=== PATIENT | male | born 1990 | race African-American/Black ===

== ENCOUNTER 2016-10-05 11:05 | Emergency (ER) | payer OTHER ==
[~2016-10-05] VITALS: Ht 175.3 cm; Wt 71.0 kg
[2016-10-05] MEDS ORDERED: SODIUM CHLORIDE 0.9% 1000ML 1,000 ML IV STA (11:11)
[2016-10-05 11:13] VITALS: TEMP 36.3; Ht 175.3 cm; Wt 71.0 kg
--- NOTE | 2016-10-05 11:16 | EMERGENCY ROOM VISIT NOTE ---
History Report prepared by Scribe: Lynn Combs Under the Supervision of: Dr. José Miguel Chaparro D.O. First contact with patient: 11:07 Stated Complaint: OVERDOSE History of Present Illness The patient is a 26 year old male who presents to the Emergency Room with complaints of an overdose that occurred this morning. Per EMS, the patient is an inmate and found K2 in the yard today that was reportedly sold to him by another inmate. He apparently smoked the K2 this morning and has been altered for the past 2 hours. Staff at the residential told EMS that he was tachycardic in the 120s, but he was normal sinus rhythm en route to the ED. His blood sugar was 86. There was no known trauma. He uses tobacco. History limited secondary to altered mental status. Source of History: EMS History Limited By: AMS Onset: this morning Position: other (global) Quality: other (K2 overdose) Timing: constant Review of Systems Limited secondary to altered mental status. Past Medical & Surgical Medical Problems: (1) History of psychiatric disorder Family History Unobtainable secondary to altered mental status. Social History Housing Status: other (residential) Occupation Status: other (inmate) Current/Historical Medications No Active Prescriptions or Reported Meds Allergies Coded Allergies: No Known Allergies (Unverified , 10/05/16) Physical Exam Vital Signs Date Time Temp Pulse Resp B/P Pulse Ox O2 Delivery O2 Flow Rate FiO2 10/05/16 15:33 82 18 143/78 99 Room Air 10/05/16 13:11 64 10/05/16 12:51 72 18 138/81 99 Room Air 10/05/16 11:22 75 10/05/16 11:19 100 Room Air 10/05/16 11:19 100 Room Air 10/05/16 11:13 36.3 74 18 125/82 100 Room Air Physical Exam GENERAL: Patient is awake and alert, answers questions intermittently, follows command intermittently. EYES: The conjunctivae are clear. The pupils are round and reactive. EARS, NOSE, MOUTH AND THROAT: The nose is without any evidence of any deformity. Mucous membranes dry. NECK: The neck is nontender and supple. RESPIRATORY: Normal respiratory effort is noted there is no evidence of wheezing rhonchi or rales CARDIOVASCULAR: Regular rate and rhythm noted there no murmurs rubs or gallops normal S1 normal S2 GASTROINTESTINAL: The abdomen is soft. Bowel sounds are present in all quadrants. Abdomen is nontender MUSCULOSKELETAL/EXTREMITIES: There is no evidence of gross deformity full range of motion is noted in the hips and shoulders SKIN: There is no obvious evidence of any rash. There are no petechiae, pallor or cyanosis noted. NEUROLOGIC: Patient is awake and oriented to person, place, but not time or situation. Patellar tendon reflexes 2+ bilaterally. PSYCH: Patient is not answering questions appropriately. Appears confused at times. Unable to assess psychiatric status at this time. Medical Decision & Procedures ER Provider Diagnostic Interpretation: Radiology results as stated below per my review and radiologist interpretation: HEAD CT NONCONTRAST CT DOSE: 906.34 mGycm HISTORY: Change in mental status OVERDOSE TECHNIQUE: Multiaxial CT images of the head were performed without the use of intravenous contrast. Comparison: None. Findings: The paranasal sinuses and mastoid air cells are clear. The calvarium and skull base are intact. The ventricles and sulci are within normal limits. There is no mass, hematoma, midline shift, or acute infarct. Impression: No acute intracranial abnormality. Electronically signed by: Anibal Mohamud M.D. 10/05/2016 11:49 AM Dictated Date/Time: 10/05/2016 11:48 AM CHEST ONE VIEW PORTABLE CLINICAL HISTORY: Overdose dyspnea COMPARISON STUDY: No previous studies for comparison. FINDINGS: The bones soft tissues and hemidiaphragms are normal. The cardiomediastinal silhouette is normal. The lungs are clear. The pulmonary vasculature is normal. IMPRESSION: Negative chest. Electronically signed by: Anibal Mohamud M.D. 10/05/2016 11:29 AM Dictated Date/Time: 10/05/2016 11:28 AM Laboratory Results 10/05/16 12:00 Red Blood Count 5.05, Mean Corpuscular Volume 85.3, Mean Corpuscular Hemoglobin 30.5, Mean Corpuscular Hemoglobin Concent 35.7, Mean Platelet Volume 9.8, Neutrophils (%) (Auto) 72.5, Lymphocytes (%) (Auto) 14.3, Monocytes (%) (Auto) 10.9, Eosinophils (%) (Auto) 1.7, Basophils (%) (Auto) 0.5, Neutrophils # (Auto ) 6.06, Lymphocytes # (Auto) 1.19, Monocytes # (Auto) 0.91, Eosinophils # (Auto ) 0.14, Basophils # (Auto) 0.04 10/05/16 12:00 Test 10/05/16 11:26 10/05/16 12:00 10/05/16 13:27 Bedside Glucose 100 mg/dl (70-99) White Blood Count 8.35 K/uL (4.8-10.8) Red Blood Count 5.05 M/uL (4.7-6.1) Hemoglobin 15.4 g/dL (14.0-18.0) Hematocrit 43.1 % (42-52) Mean Corpuscular Volume 85.3 fL (80-100) Mean Corpuscular Hemoglobin 30.5 pg (25-34) Mean Corpuscular Hemoglobin Concent 35.7 g/dl (32-36) Platelet Count 295 K/uL (130-400) Mean Platelet Volume 9.8 fL (7.4-10.4) Neutrophils (%) (Auto) 72.5 % Lymphocytes (%) (Auto) 14.3 % Monocytes (%) (Auto) 10.9 % Eosinophils (%) (Auto) 1.7 % Basophils (%) (Auto) 0.5 % Neutrophils # (Auto) 6.06 K/uL (1.4-6.5) Lymphocytes # (Auto) 1.19 K/uL (1.2-3.4) Monocytes # (Auto) 0.91 K/uL (0.11-0.59) Eosinophils # (Auto) 0.14 K/uL (0-0.5) Basophils # (Auto) 0.04 K/uL (0-0.2) RDW Standard Deviation 37.9 fL (36.4-46.3) RDW Coefficient of Variation 12.2 % (11.5-14.5) Immature Granulocyte % (Auto) 0.1 % Immature Granulocyte # (Auto) 0.01 K/uL (0.00-0.02) Prothrombin Time 12.2 SECONDS (9.0-12.0) Prothromb Time International Ratio 1.1 (0.9-1.1) Activated Partial Thromboplast Time 27.8 SECONDS (21.0-31.0) Partial Thromboplastin Ratio 1.1 Anion Gap 6.0 mmol/L (3-11) Est Creatinine Clear Calc Drug Dose 119.1 ml/min Estimated GFR () 129.2 Estimated GFR (Non- 111.5 BUN/Creatinine Ratio 16.7 (10-20) Osmolality 295 mOsm/kg (280-300) Calcium Level 9.1 mg/dl (8.5-10.1) Total Bilirubin 1.2 mg/dl (0.2-1) Direct Bilirubin 0.2 mg/dl (0-0.2) Aspartate Amino Transf (AST/SGOT) 17 U/L (15-37) Alanine Aminotransferase (ALT/SGPT) 21 U/L (12-78) Alkaline Phosphatase 63 U/L (45-117) Total Creatine Kinase 472 U/L (39-308) Creatine Kinase MB 2.3 ng/ml (0.5-3.6) Creatine Kinase MB Ratio 0.5 (0-3.0) Troponin I < 0.015 ng/ml (0-0.045) Total Protein 7.4 gm/dl (6.4-8.2) Albumin 4.1 gm/dl (3.4-5.0) Lipase 188 U/L (73-393) Salicylates Level < 1.7 mg/dl (2.8-20) Acetaminophen Level < 2 ug/ml (10-30) Ethyl Alcohol mg/dL < 3.0 mg/dl (0-3) Urine Color DK YELLOW Urine Appearance CLEAR (CLEAR) Urine pH 8.5 (4.5-7.5) Urine Specific [place] 1.030 (1.000-1.030) Urine Protein NEG (NEG) Urine Glucose (UA) NEG (NEG) Urine Ketones TRACE (NEG) Urine Occult Blood NEG (NEG) Urine Nitrite NEG (NEG) Urine Bilirubin NEG (NEG) Urine Urobilinogen NEG (NEG) Urine Leukocyte Esterase NEG (NEG) Urine Opiates Screen NEG (NEG) Urine Methadone, Qualitative NEG (NEG) Urine Barbiturates NEG (NEG) Urine Phencyclidine (PCP) Level NEG (NEG) Ur Amphetamine/Methamphetamine NEG (NEG) MDMA (Ecstasy) Screen NEG (NEG) Urine Benzodiazepines Screen NEG (NEG) Urine Cocaine Metabolite NEG (NEG) Urine Marijuana (THC) NEG (NEG) Laboratory results per my review. Medications Administered Medications (Trade) Dose Ordered Sig/Yonny Route Start Time Stop Time Status Last Admin Dose Admin Sodium Chloride (Nss 1000ml) 1,000 ml @ 999 mls/hr Q1H1M STAT IV 10/05/16 11:11 10/05/16 12:11 DC 10/05/16 11:11 999 MLS/HR ECG Indication: toxicologic Rate (beats per minute): 74 Rhythm: normal sinus Findings: no ectopy, other (no acute ST segment abnormality) Comparison ECG Date: no prior available ED Course 1109: The patient was evaluated in room C7. A complete history and physical examination were performed. 1111: Ordered NSS 1000 ml @ 999 mls/hr IV. 1220: I reassessed the patient. He was still slightly altered. 1459: Upon reevaluation, the patient is resting comfortably. I discussed the results and treatment plan with the patient and the guards. They verbalized agreement of the treatment plan. The patient was discharged back to the residential. 1512: I spoke with Leida, a member of the medical team at the residential. The patient will be observed in the [facility] and will be sent back to the ER if he worsens. Medical Decision Prior records/ancillary studies reviewed. Triage Nursing notes reviewed. Additional history obtained from EMS. The patient's history was concerning for altered mental status and probable overdose. Differential diagnosis: Etiologies such as toxicologic, infection, hypoglycemia, electrolyte abnormalities, cardiac sources, intracerebral event, neurologic, as well as others were entertained. The patient is a 26-year-old male who presented to the emergency department from the residential for an evaluation of altered mental status. According to the prehospital personnel the patient may have been involved with using drugs at the residential. He was reportedly visitation day and the patient was found with a synthetic drug. The patient denied any drug or alcohol use. He did not have any focal neurologic doses. He appeared to be confused but on multiple re- evaluations his confusion continued to improve. I discussed patient's laboratory and radiographic studies with him. I also discussed this case with the medical personnel at the residential. I recommended that [facility] and sent him back to the emergency department for any other worrisome symptoms such as fever or neck stiffness any signs of meningitis or any other worrisome symptoms. Otherwise they were encouraged to continue all medications as prescribed. Impression Primary Impression: Altered mental status Additional Impression: Suspected drug abuse Scribe Attestation The scribe's documentation has been prepared under my direction and personally reviewed by me in its entirety. I confirm that the note above accurately reflects all work, treatment, procedures, and medical decision making performed by me. Departure Information Dispostion Home / Self-Care Prescriptions No Active Prescriptions or Reported Meds Referrals Дмитрий ZAZUETA (PCP) Patient Instructions [facility] Additional Instructions Continue to observe the patient in the [facility]. His mental status should continue to clear if this is consistent with a recreational drug use. Return to the emergency department if symptoms change worsen or the need arises. Problem Qualifiers Primary Impression: Altered mental status Altered mental status type: unspecified Qualified Codes: R41.82 - Altered mental status, unspecified
[2016-10-05 11:19] VITALS: O2SAT 100
--- NOTE | 2016-10-05 11:30 | DIAGNOSTIC IMAGING REPORT ---
CHEST ONE VIEW PORTABLE CLINICAL HISTORY: Overdose dyspnea COMPARISON STUDY: No previous studies for comparison. FINDINGS: The bones soft tissues and hemidiaphragms are normal. The cardiomediastinal silhouette is normal. The lungs are clear. The pulmonary vasculature is normal. IMPRESSION: Negative chest. Electronically signed by: Anibal Mohamud M.D. 10/05/2016 11:29 AM Dictated Date/Time: 10/05/2016 11:28 AM
--- NOTE | 2016-10-05 11:51 | DIAGNOSTIC IMAGING REPORT ---
HEAD CT NONCONTRAST CT DOSE: 906.34 mGycm HISTORY: Change in mental status OVERDOSE TECHNIQUE: Multiaxial CT images of the head were performed without the use of intravenous contrast. Comparison: None. Findings: The paranasal sinuses and mastoid air cells are clear. The calvarium and skull base are intact. The ventricles and sulci are within normal limits. There is no mass, hematoma, midline shift, or acute infarct. Impression: No acute intracranial abnormality. Electronically signed by: Anibal Mohamud M.D. 10/05/2016 11:49 AM Dictated Date/Time: 10/05/2016 11:48 AM
[2016-10-05 12:27] LABS: BASO % 0.5 %; BASO ABS # 0.04 K/uL (0-0.2); COMPLETE YES; EOS % 1.7 %; HEMATOCRIT 43.1 % (42-52); IG% 0.1 %; LYMPH % 14.3 %; LYMPH ABS # 1.19 K/uL (1.2-3.4); MEAN CELL VOLUME 85.3 fL (80-100); MEAN CORPUSCULAR HEMOGLOBIN 30.5 pg (25-34); MEAN CORPUSCULAR HGB CONC 35.7 g/dl (32-36); MEAN PLATELET VOLUME 9.8 fL (7.4-10.4); MONO % 10.9 %; NEUT % 72.5 %; PLATELET COUNT 295 K/uL (130-400); RED BLOOD COUNT 5.05 M/uL (4.7-6.1); WHITE BLOOD COUNT 8.35 K/uL (4.8-10.8)
[2016-10-05 12:43] LABS: INR 1.1 (0.9-1.1); PARTIAL THROMBOPLASTIN RATIO 1.1; PROTHROMBIN TIME (PATIENT) 12.2 SECONDS (9.0-12.0)
[2016-10-05 12:51] LABS: BLOOD UREA NITROGEN 16 mg/dl (7-18); BUN/CREATININE RATIO 16.7 (10-20); CALCIUM 9.1 mg/dl (8.5-10.1); CARBON DIOXIDE 28 mmol/L (21-32); CHLORIDE 107 mmol/L (98-107); CREATININE 0.94 mg/dl (0.60-1.40); GLUCOSE 79 mg/dl (70-99); POTASSIUM 3.9 mmol/L (3.5-5.1); SODIUM 141 mmol/L (136-145)
[2016-10-05 12:56] LABS: ALKALINE PHOSPHATASE 63 U/L (45-117); ALT/SGPT 21 U/L (12-78); AST/SGOT 17 U/L (15-37); CKMB/CK RATIO 0.5 (0-3.0)
[2016-10-05 13:19] LABS: ACETAMINOPHEN < 2 ug/ml (10-30)
[2016-10-05 13:48] LABS: URINE APPEARANCE CLEAR (CLEAR); URINE BILIRUBIN NEG (NEG); URINE COLOR DK YELLOW; URINE NITRITE NEG (NEG); URINE PH 8.5 (4.5-7.5); UROBILINOGEN NEG (NEG)
[2016-10-05 14:04] LABS: MANUAL MICROSCOPIC REQUIRED? NO; REVIEW REQ? NO
[2016-10-05 14:39] LABS: BENZODIAZEPINE, URINE NEG (NEG); COCAINE,URINE NEG (NEG); PHENCYCLIDINE, URINE NEG (NEG)
[2016-10-05 15:33] VITALS: BP 143/78; PULSE 82; O2SAT 99
[2016-10-13 11:35] LABS: SYNTHETIC CANNABINOIDS QL URIN NEGATIVE (Negative)
== END 2016-10-05 16:12 ==
LOC: C.EDC 11:08
DX: R41.82 Altered mental status, unspecified (principal); F19.10 Other psychoactive substance abuse, uncomplicated